=== PATIENT | female | born 1970 | race African-American/Black ===

== ENCOUNTER 2016-08-16 15:22 | Emergency (ER) | payer OTHER ==
[2016-08-16 13:54] LABS: BASOPHIL% 0.2 % (0-2.5); DIFF IND NO; EOSINOPHIL# 0.1 X10e3 (0-0.7); EOSINOPHIL% 0.4 % (0.0-7.0); HEMATOCRIT 26.8 % (35.0-45.0); HEMOGLOBIN 8.6 gm/dL (12.0-16.0); LYMPHOCYTE# 0.8 X10e3 (1.0-3.5); LYMPHOCYTE% 6.4 % (17.0-45.0); MEAN CORPUSCULAR HEMOGLOBIN 26.5 PG (28-34); MEAN PLATELET VOLUME 7.1 FL (6.5-11.5); MONOCYTE# 0.7 X10e3 (0-1.0); MONOCYTE% 5.7 % (3.0-12.0); NEUTROPHIL# 11.4 X10e3 (1.5-7.1); NEUTROPHIL% 87.3 % (40-75); PLATELET COUNT 425 X10e3 (140-420); RED BLOOD COUNT 3.23 X10e (3.90-5.30); RED CELL DISTRIBUTION WIDTH 17.4 % (11.0-15.5)
[2016-08-16 14:23] LABS: INR 1.1; PROTHROMBIN TIME (PATIENT) 11.9 SECONDS (9.6-11.5)
[2016-08-16 14:26] LABS: BUN/CREATININE RATIO 6.8; CREATININE SERUM 12.5 mg/dL (0.6-1.4); GLOM FILT RATE Estimated 4.2 mL/min (>60); POTASSIUM 3.9 mmol/L (3.5-5.1)
[~2016-08-16 15:22] MED LIST: ACETAMINOPHEN PO; AMLODIPINE BESYL5 MG PO; AUGMENTIN875 MG PO; CALCITRIOL0.25 MCG PO; CIPRO PO; CLINDAMYCIN HC300 MG PO; DAKIN'S473 ML MC; FERRO-TIME325 MG PO; FERROUS SULFATE PO; FLAGYL PO; LEVAQUIN PO; LEVOTHYROXINE75 MC1 PO; LISINOPRIL20 MG PO; LORTAB 10-5001 EACH PO; NORCO 5/325 TAB1 TAB PO; NORCO1 TAB 10/3 PO; NORVASC PO; NORVASC10 MG PO; PREDNISONE PO; PREDNISONE10 MG/DOSE PO; PRINIVIL20 M1 PO; PRINIVIL40 MG PO; PROCRIT20000 U/ML SUBQ; PROCRIT4000 U/ML IJ; RENAGEL800 MG PO; SOD BICARBONATE PO; SODIUM BICARBO650 MG PO; SYNTHROID25 MCG PO; VANTIN200 MG PO; VITAMIN D250000 UNIT PO; VITAMIN D400 UNI1 PO; VITAMIN D50000 UNIT PO; ZYLOPRIM100 MG PO
== END 2016-08-16 15:50 | disposition home or self-care (01) ==
LOC: CED 15:22
PROVIDERS: Emergency Medicine
DX: L02.31 Cutaneous abscess of buttock (principal); I12.0 Hypertensive chronic kidney disease with stage 5 chronic kidney disease or end stage renal disease; N18.6 End stage renal disease; Z79.899 Other long term (current) drug therapy
CPT/HCPCS: 36415; 80048; 85025; 85610; 85730; 87040; 99283

== ENCOUNTER 2016-11-01 11:57 | Emergency (ER) | payer OTHER | END 2016-11-01 15:47 | disposition home or self-care (01) | LOC: CED 11:57 | DX: I12.0 Hypertensive chronic kidney disease with stage 5 chronic kidney disease or end stage renal disease (principal); N18.6 End stage renal disease; Z99.2 Dependence on renal dialysis; M54.30 Sciatica, unspecified side; E03.9 Hypothyroidism, unspecified; M10.9 Gout, unspecified; E66.9 Obesity, unspecified; Z79.2 Long term (current) use of antibiotics; Z79.899 Other long term (current) drug therapy | CPT/HCPCS: 99283 ==